=== PATIENT | female | born 1990 | race African-American/Black ===

== ENCOUNTER 2018-03-29 22:17 | Emergency (ER) | payer OTHER ==
[~2018-03-29] VITALS: Ht 167.6 cm; Wt 54.0 kg
[2018-03-29 22:17] VITALS: BP 127/80
--- NOTE | 2018-03-29 22:17 | NUR ---
PT BIB EMS ON 5150 HOLD FROM [facility]. PT TRANSFERED FROM [facility] TO BED 5 WITH VSS.
[2018-03-29 23:04] LABS: BASOPHILS % (AUTO) 0.3 % (0.0-2.0); EOSINOPHILS # (AUTO) 0.2 K/uL (0-0.4); EOSINOPHILS % (AUTO) 1.9 % (0.0-4.0); HEMATOCRIT 33.6 % (36-48); HEMOGLOBIN 10.7 g/dL (12.0-16.0); LYMPHOCYTES # (AUTO) 2.6 K/uL (2.5-16.5); LYMPHOCYTES % (AUTO) 21.1 % (20.5-51.1); MEAN CORPUSCULAR HEMOGLOBIN 25 pg (27-31); MEAN CORPUSCULAR HGB CONC 32 g/dL (33-37); MEAN CORPUSCULAR VOLUME 78.6 fL (80-94); MONOCYTES # (AUTO) 1.2 K/uL (0.8-1.0); MONOCYTES % (AUTO) 9.9 % (1.7-9.3); NEUTROPHILS # (AUTO) 8.3 K/uL (1.8-7.7); NEUTROPHILS % (AUTO) 66.8 % (42.2-75.2); PLATELET COUNT (AUTO) 521 K/uL (140-450); RED BLOOD CELL COUNT(AUTO) 4.27 MIL/uL (4.20-5.40); RED CELL DISTRIBUTION WIDTH 13.7 % (11.6-13.7); WHITE BLOOD COUNT (AUTO) 12.4 K/uL (4.8-10.8)
[2018-03-29 23:15] LABS: ANION GAP 13.7 (8-16); CARBON DIOXIDE 29.2 mmol/L (21-32); CHLORIDE 101 mmol/L (98-107); CREATININE 0.9 mg/dL (0.6-1.3); GFR ARICAN-AMERICAN 96 mL/min (>90); GLUCOSE 114 mg/dL (74-106); POTASSIUM 3.9 mmol/L (3.5-5.1); SODIUM SERUM 140 mmol/L (136-145); UREA NITROGEN, BLOOD 14 mg/dL (7-18)
[2018-03-29 23:21] LABS: ALBUMIN 3.4 g/dL (3.4-5.0); ASPARTATE AMINOTRANSFERASE 130 U/L (15-37); TOTAL BILIRUBIN 0.2 mg/dL (0.0-1.0)
[2018-03-29 23:23] LABS: ACETAMINOPHEN < 0.5 ug/ml (10-30); SALICYLATE < 2.8 mg/dL (2.8-20.0)
[2018-03-29 23:33] LABS: APPEARANCE,URINE SL CLOUDY (CLEAR); BILIRUBIN,URINE NEGATIVE (NEGATIVE); BLOOD, URINE NEGATIVE (NEGATIVE); COLOR,URINE YELLOW (YELLOW); LEUKOCYTE ESTERASE ,URINE NEGATIVE (NEGATIVE); NITRITE, URINE NEGATIVE (NEGATIVE); UGLUCOSE NEGATIVE (NEGATIVE)
[2018-03-29 23:42] LABS: BARBITURATE, URINE NEG. ng/ml (NEG <=200); BENZODIAZEPINE, URINE NEG. ng/mL (NEG <=200); CANNABINOID, URINE NEG. ng/mL (NEG <=50); COCAINE, URINE NEG. ng/mL (NEG <=300); OPIATE, URINE POS. ng/mL (NEG <=2000); PHENCYCLIDINE SCREEN,URINE NEG. ng/mL (NEG <=25)
--- NOTE | 2018-03-29 23:46 | NUR ---
REPORT GIVEN TO DR EMEKA LESLIEPSYCHSterling.
--- NOTE | 2018-03-30 00:32 | NUR ---
OUTPATIENT COUNSELING/METNAL HEALTH/PSYCHIATRIC PROGRMA INFORMATION PROVIDED UPON DISCHARGE.
[2018-03-30 00:49] VITALS: BP 129/70
--- NOTE | 2018-03-30 00:49 | NUR ---
Patient discharged with v/s stable. Written and verbal after care instructions given and explained. Patient verbalized understanding. Ambulatory with steady gait. All questions addressed prior to discharge. Advised to follow up with PMD.
== END 2018-03-30 00:49 | disposition home or self-care (01) ==
LOC: MED 22:17
DX: S41.102A Unspecified open wound of left upper arm, initial encounter (principal); X58.XXXA Exposure to other specified factors, initial encounter
CPT/HCPCS: 36415; 80053; 80305; 81003; 85025; 87040; 99285; G0480; G0482; 99284

== ENCOUNTER 2018-05-06 20:21 | Emergency (ER) | payer OTHER ==
[~2018-05-06] VITALS: Ht 167.6 cm; Wt 64.4 kg
[2018-05-06 20:21] VITALS: BP 125/82
--- NOTE | 2018-05-06 20:21 | NUR ---
PT BIBA. BLS TAKEN TO BED 3
--- NOTE | 2018-05-06 20:25 | NUR ---
PT BIBA PER [facility] PT WAS FOUND AT [place] ACTING ERRATIC AND ALTERED. PT IS IS VERBAL AND AWAKE, DOES NOT ANSWER QUESTIONS APPROPRIATELY. PT HAS OPEN WOUNDS TO RT AND LEFT UPPER ARMS. NO ACTIVE BLEEDING AT THIS TIME. UNABLE TO OBTAIN PMH OR ALLERGIES AT THIS TIME.
--- NOTE | 2018-05-06 20:53 | NUR ---
pt laying in bed restless, follows commands, does not answer questions appropriately.
[2018-05-06] MEDS ORDERED: HALOPERIDOL IM 5 MG/ML VIAL IM ONE (21:20)
--- NOTE | 2018-05-06 21:20 | NUR ---
Pt is restless and making sexually inapprop gestures, making sexually inapprop statements, and attempting to grab all staff members by the genitals.
[2018-05-06] MEDS ORDERED: diphenhydrAMINE 50 MG/ML VIAL IM ONE (21:25)
--- NOTE | 2018-05-06 22:22 | NUR ---
Pt sleeping, easily arousable. Calm and approp when awaken.
--- NOTE | 2018-05-07 01:00 | NUR ---
PT UNABLE TO URINATE ON BED RHODES, ER MADE AWARE, OK TO STRAIGHT CATH, PT TOLERATED PROCEDURE WELL.
[2018-05-07 02:30] LABS: BARBITURATE, URINE NEGATIVE ng/ml (NEG <=200); BENZODIAZEPINE, URINE NEGATIVE ng/mL (NEG <=200); COCAINE, URINE NEGATIVE ng/mL (NEG <=300)
[2018-05-07 02:31] LABS: CANNABINOID, URINE NEGATIVE ng/mL (NEG <=50); OPIATE, URINE POSITIVE ng/mL (NEG <=2000); PHENCYCLIDINE SCREEN,URINE NEGATIVE ng/mL (NEG <=25)
--- NOTE | 2018-05-07 03:00 | NUR ---
PT LAYING IN BED SLEEPING AROUSABLE TO VERBAL STIMULI, COMFORT NEEDS MET, WILL CONTINUE TO MONITOR.
--- NOTE | 2018-05-07 04:45 | NUR ---
PT LAYING IN BED SLEEPING , VSS.
--- NOTE | 2018-05-07 07:20 | NUR ---
REPORT GIVEN TO KEIRA, TRANSFER OF CARE AT THIS TIME.
--- NOTE | 2018-05-07 07:50 | NUR ---
Patient discharged with v/s stable. Written and verbal after care instructions given and explained. Patient verbalized understanding. Ambulatory with steady gait to the exit. All questions addressed prior to discharge. Advised to follow up with PMD. Removed wrist band
[2018-05-07 07:51] VITALS: BP 122/59
== END 2018-05-07 07:50 | disposition home or self-care (01) ==
LOC: MED 20:21
DX: F10.129 Alcohol abuse with intoxication, unspecified (principal)
CPT/HCPCS: 36415; 80305; 96372; 99284; G0482; J1200; J1630

== ENCOUNTER 2020-09-19 12:42 | Emergency (ER) | payer OTHER ==
[~2020-09-19] VITALS: Ht 180.3 cm; Wt 54.4 kg
[2020-09-19 12:42] VITALS: BP 118/86
--- NOTE | 2020-09-19 12:42 | NUR ---
ELO ALS TAKEN TO BED 6
--- NOTE | 2020-09-19 13:20 | NUR ---
IV ESTABLISHED, BLOOD DRAWN AND SENT TO LAB.
[2020-09-19 13:31] LABS: BASOPHILS % (AUTO) 0.2 % (0.0-2.0); EOSINOPHILS # (AUTO) 0.1 K/uL (0-0.4); EOSINOPHILS % (AUTO) 0.6 % (0.0-4.0); HEMATOCRIT 36.5 % (36-48); HEMOGLOBIN 11.6 g/dL (12.0-16.0); LYMPHOCYTES # (AUTO) 1.2 K/uL (2.5-16.5); MEAN CORPUSCULAR HEMOGLOBIN 25 pg (27-31); MEAN CORPUSCULAR HGB CONC 32 g/dL (33-37); MEAN CORPUSCULAR VOLUME 79.3 fL (80-94); MONOCYTES # (AUTO) 0.8 K/uL (0.8-1.0); MONOCYTES % (AUTO) 4.2 % (1.7-9.3); NEUTROPHILS # (AUTO) 17.3 K/uL (1.8-7.7); PLATELET COUNT (AUTO) 346 K/uL (140-450); RED CELL DISTRIBUTION WIDTH 15.2 % (11.6-13.7); WHITE BLOOD COUNT (AUTO) 19.5 K/uL (4.8-10.8)
[2020-09-19 13:45] VITALS: BP 123/90
[2020-09-19 13:53] LABS: ALBUMIN 3.1 g/dL (3.4-5.0); ANION GAP 9.8 (8-16); ASPARTATE AMINOTRANSFERASE 34 U/L (15-37); CARBON DIOXIDE 30.6 mmol/L (21-32); CHLORIDE 101 mmol/L (98-107); GFR ARICAN-AMERICAN 84 mL/min (>90); GLUCOSE 221 mg/dL (74-106); POTASSIUM 3.4 mmol/L (3.5-5.1); SODIUM SERUM 138 mmol/L (136-145); TOTAL BILIRUBIN 0.2 mg/dL (0.0-1.0); UREA NITROGEN, BLOOD 8 mg/dL (7-18)
[2020-09-19 13:55] LABS: SALICYLATE < 2.8 mg/dL (2.8-20.0)
[2020-09-19 13:56] LABS: ACETAMINOPHEN < 0.5 ug/ml (10-30)
[2020-09-19 14:50] LABS: CKMB RELATIVE INDEX 0.1 (0.0-2.5); CREATINE KINASE MB 2.2 ng/mL (0-3.6)
[2020-09-19 14:55] LABS: APPEARANCE,URINE CLEAR (CLEAR); BILIRUBIN,URINE NEGATIVE (NEGATIVE); BLOOD, URINE NEGATIVE (NEGATIVE); COLOR,URINE ORANGE (YELLOW); LEUKOCYTE ESTERASE ,URINE NEGATIVE (NEGATIVE); NITRITE, URINE NEGATIVE (NEGATIVE); UGLUCOSE 1+ (NEGATIVE)
[2020-09-19 15:03] LABS: BARBITURATE, URINE NEGATIVE ng/ml (NEG <=200); BENZODIAZEPINE, URINE NEGATIVE ng/mL (NEG <=200); CANNABINOID, URINE NEGATIVE ng/mL (NEG <=50); COCAINE, URINE NEGATIVE ng/mL (NEG <=300); OPIATE, URINE NEGATIVE ng/mL (NEG <=2000); PHENCYCLIDINE SCREEN,URINE NEGATIVE ng/mL (NEG <=25)
--- NOTE | 2020-09-19 16:55 | NUR ---
Patient discharged with v/s stable. Written and verbal after care instructions given and explained. Patient verbalized understanding. Ambulatory with steady gait. All questions addressed prior to discharge. Advised to follow up with PMD. PT AAOX4, AMBULATED WITH STEADY GAIT, IN NAD, VSS. PT REFUSED TO TAKE DISCHARGE INSTRUCTIONS WITH HER AND LEFT WITHOUT THEM.
== END 2020-09-19 16:55 | disposition home or self-care (01) ==
LOC: EDBD → MED 12:42 → MERGE 12:42 → MED 16:55
DX: G93.40 Encephalopathy, unspecified (principal)
CPT/HCPCS: 36415; 80053; 80305; 81003; 81025; 82550; 82553; 84484; 85025; 93005; 99285; G0480; G0482

== ENCOUNTER 2020-09-19 17:57 | Inpatient (IN) | payer OTHER, SELFPAY ==
[~2020-09-19] VITALS: Ht 165.1 cm; Wt 54.4 kg
[2020-09-19 17:57] VITALS: BP 107/70
[~2020-09-19 17:57] MED LIST: ARIP5TAB8 PO
--- NOTE | 2020-09-19 17:57 | NUR ---
BIBA TAKEN TO BED 6
[2020-09-19] MEDS ORDERED: LORazepam 2 MG/ML VIAL IM ONE (18:05)
[2020-09-19] MEDS ORDERED: ONDANSETRON 4 MG/2 ML VIAL IM ONE (18:05)
[2020-09-19 18:53] LABS: BASOPHILS # (AUTO) 0.1 K/uL (0.00-0.22); BASOPHILS % (AUTO) 0.5 % (0.0-2.0); EOSINOPHILS % (AUTO) 0.1 % (0.0-4.0); HEMATOCRIT 35.3 % (36-48); HEMOGLOBIN 10.9 g/dL (12.0-16.0); LYMPHOCYTES % (AUTO) 5.3 % (20.5-51.1); MEAN CORPUSCULAR HEMOGLOBIN 25 pg (27-31); MEAN CORPUSCULAR HGB CONC 31 g/dL (33-37); MONOCYTES # (AUTO) 0.9 K/uL (0.8-1.0); MONOCYTES % (AUTO) 4.7 % (1.7-9.3); NEUTROPHILS # (AUTO) 16.2 K/uL (1.8-7.7); NEUTROPHILS % (AUTO) 89.4 % (42.2-75.2); PLATELET COUNT (AUTO) 341 K/uL (140-450); RED BLOOD CELL COUNT(AUTO) 4.42 MIL/uL (4.20-5.40); RED CELL DISTRIBUTION WIDTH 15.5 % (11.6-13.7); WHITE BLOOD COUNT (AUTO) 18.2 K/uL (4.8-10.8)
--- NOTE | 2020-09-19 19:13 | NUR ---
RECEIVED TRANSFER OF CARE REPORT FROM MARTA BARNETT FOR CONTINUATION OF CARE.
[2020-09-19 19:16] LABS: ALBUMIN 3.2 g/dL (3.4-5.0); CARBON DIOXIDE 29.7 mmol/L (21-32); CREATININE 0.9 mg/dL (0.6-1.3); POTASSIUM 3.7 mmol/L (3.5-5.1); TOTAL BILIRUBIN 0.2 mg/dL (0.0-1.0)
--- NOTE | 2020-09-19 19:16 | NUR ---
PT FOUND ASLEEP IN SEMI-WALSH'S POSITION IN BED. PT HAS VISIBLE EQUAL RISE AND FALL UPON RESPIRATION. NO SIGNS OF DISTRESS. BED LOCKED IN LOWEST POSITION WITH 2 SIDE RAILS UP FOR SAFETY. WILL CONTINUE TO MONITOR.
[2020-09-19] MEDS ORDERED: AZITHROMYCIN 500 MG in DEXTROSE 5% 250 ML IV ONE (19:55)
[2020-09-19] MEDS ORDERED: AZITHROMYCIN 500 MG INJ VIAL IV ONE (20:00)
--- NOTE | 2020-09-19 20:30 | NUR ---
RADIOLOGIST TECH AT BEDSIDE.
[2020-09-19 20:44] LABS: PROTHROMBIN TIME 10.2 secs (10.8-13.4)
--- NOTE | 2020-09-19 21:16 | NUR ---
PT FOUND ASLEEP IN SEMI-WALSH'S POSITION IN BED. PT HAS VISIBLE EQUAL RISE AND FALL UPON RESPIRATION. NO DISTRESS NOTED. BED LOCKED IN LOWEST POSITION WITH 2 SIDE RAILS UP FOR SAFETY.
[2020-09-19] MEDS ORDERED: KCL 20 MEQ/WATER INJ PREMIX 200 ML IV PRN (21:25)
[2020-09-19] MEDS ORDERED: MAG SULF 2000 MG/WATER PREMIX 50 ML IV PRN (21:25)
[2020-09-19] MEDS ORDERED: POTASSIUM CHLORIDE 10 MEQ TABER PO PRN (21:25)
[2020-09-19] MEDS ORDERED: IBUPROFEN 400 MG TAB PO PRN (21:25)
[2020-09-19] MEDS ORDERED: MAGNESIUM OXIDE 400 MG TAB PO PRN (21:25)
[2020-09-19] MEDS ORDERED: LORazepam 1 MG TAB PO PRN (21:25)
[2020-09-19] MEDS ORDERED: ACETAMINOPHEN 325 MG TAB PO PRN (21:25)
[2020-09-19] MEDS ORDERED: ONDANSETRON 4 MG/2 ML VIAL IVP PRN (21:25)
[2020-09-19] MEDS ORDERED: ZOLPIDEM 5 MG TAB PO PRN (21:25)
--- NOTE | 2020-09-19 22:23 | NUR ---
Patient will be admitted to care of DR BOSWELL. Admited to MED/SURG. Will go to room 109B. Belongings list completed. Report to SAAD BARNETT.
--- NOTE | 2020-09-19 22:45 | NUR ---
PT TRANSFERRED TO ROOM 109B VIA [facility]NEY. RECEIVING NURSE SAAD BARNETT AT BEDSIDE.
[2020-09-19 23:00] VITALS: BP 106/86
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
--- NOTE | 2020-09-20 00:34 | NUR ---
Patient's Plan of Care was discussed and reviewed with WHEEL ROLLER: JOHNNA LIN
--- NOTE | 2020-09-20 01:00 | NUR ---
LYING ON HER LEFT SIDE, SLEEPING COMFORTABLY.
--- NOTE | 2020-09-20 03:00 | NUR ---
STILL VERY DROWSY, DOES NOT RESPOND TO QUESTIONS, CONTINUED SLEEPING.
[2020-09-20 04:00] VITALS: BP 101/57
--- NOTE | 2020-09-20 05:00 | NUR ---
IV ACCIDENTALLY PULLED OUT. PATIENT KEEP ON MOVING IN BED. REFUSED NEW IV LINE INSERTION.
--- NOTE | 2020-09-20 05:30 | NUR ---
REQUESTED FOR FOOD BUT WHEN GIVEN DID NOT EAT, JUST CONTINUED SLEEPING.
--- NOTE | 2020-09-20 07:15 | NUR ---
REC'D REPORT FROM LEAD PORTFOLIO MANAGER NURSE, CURRENTLY PT HAS NO IV ACCESS, PT PULLED OUT DURING SHIFT. RA. PT SLEEPING, CALL LIGHT WITHIN REACH. PT DOES NOT NEED SITTER PER LEAD PORTFOLIO MANAGER NURSE.
--- NOTE | 2020-09-20 07:20 | NUR ---
STILL SLEEPING SOUNDLY IN BED. ENDORSED TO AM SHIFT NURSE FOR CONTINUITY OF CARE.
[2020-09-20 08:00] VITALS: BP 128/55
[2020-09-20] MEDS: ENOXAPARIN 40 MG/0.4 ML SYR SUBQ SCH (09:00)
--- NOTE | 2020-09-20 09:05 | NUR ---
PT REFUSED TO HAVE MEDICATION ADMINISTERED
--- NOTE | 2020-09-20 09:17 | NUR ---
PATIENT HAS BEEN SCREENED AND CATEGORIZED LOW NUTRITION RISK. PATIENT WILL BE SEEN WITHIN 7 DAYS OF ADMISSION. 09/26/[address]
--- NOTE | 2020-09-20 09:33 | NUR ---
PT STABLE, FINISHED WITH BREAKFAST, REFUSES FOR TRASH TO BE CLEARED FROM SIDE TABLE. NO SIGN OF DISTRESS AT THIS TIME. RA
--- NOTE | 2020-09-20 10:45 | NUR ---
NOTIFIED DR. LOPEZ REGARDING THE PSYCH CONSULT, STATED HE WILL SEE PT TODAY. CHERRY ASSIGNED MADE AWARE.
--- NOTE | 2020-09-20 11:01 | NUR ---
PT DOES NOT ALLOW FOR ME TO TOUCH HER, CANNOT PLACE IV CATHETER. STABLE
--- NOTE | 2020-09-20 11:33 | NUR ---
PT SCREAMING, YELLING FOR FOOD AND SNACKS, PUDDING, JELLO AND JUICE WERE PROVIDED, PT HASTY WHEN TAKING SNACKS. CALMED DOWN AFTER GETTING FOOD.
--- NOTE | 2020-09-20 11:42 | NUR ---
SOCIAL WORK NOTE: SW WAS UNABLE TO MEET PATIENT AT BEDSIDE TO COMPLETE ASSESSMENT. SW ATTEMPTED TO COMPLETE ASSESSMENT BUT PATIENT REFUSED. PATIENT APPEARED TO BE SLEEPING AND DID NOT RESPOND TO SW. Addendum: 09/21/20 at 1233 by Osito Espitia PATIENT REFUSED TO COMPLETE ASSESSMENT AND DID NOT RESPOND TO SW.
--- NOTE | 2020-09-20 14:05 | NUR ---
DC [age]ANN[age] YRS OLD FEMALE HOMELESS PATIENT WAS ADMITTED FROM ER WITH A DX OF METH USE , COVID POSITIVE, 5150 HOLD . PT HAS NO MEDICAL HX. CXR SHOWED NO ACUTE CARDIOPULMONARY DISEASE. RAPID COVID TEST POSITIVE PCR IS PENDING. CT ABD/PELVIS SOWED NO BOWEL OBSTRUCTION. WBC 18.2 STARTED ON IV ABX AZITHROMYCIN AND ROCEPHIN IV ABX. CONSULTED DR LOPEZ FOR 5150 HOLD. DC PLAN PER PSYCHIATRIST RECOMMENDATION CM TO FOLLOW
--- NOTE | 2020-09-20 15:30 | NUR ---
PT SLEEPING, HAS COVERS OVER HEAD, NO SIGN OF DISTRESS
--- NOTE | 2020-09-20 19:30 | NUR ---
ENDORSED TO TANK TRUCK LOADER NURSE FOR CONTINUITY OF CARE. RA. CALL LIGHT WITHIN REACH. STABLE NO SIGN OF DISTRESS
--- NOTE | 2020-09-20 19:31 | NUR ---
RECD. RESTING IN BED ASLEEP. WHEN WAKEN UP JUST MOVE AND CHANGED POSITION. RESPIRATION EVEN AND UNLABORED. NO IV LINE, REFUSING FOR A NEW ONE TO BE INSERTED. DISHEVELED AND UNKEMPT. WILL CONTINUE TO MONITOR BEHAVIOR, CONTINUED SLEEPING. WAITING FOR DR LOPEZ FOR PSYCHE CONSULTATION. NO APPEARANCE OF PAIN NOTED, 0/10.
[2020-09-20 20:00] VITALS: BP 107/59
--- NOTE | 2020-09-20 20:00 | NUR ---
ALLOWED HEAD ESTHETICIAN TO TAKE HER VITALS SIGNS. SANDWICH AND JUICE GIVEN REQUESTED.
--- NOTE | 2020-09-20 21:30 | NUR ---
Patient's Plan of Care was discussed and reviewed with TREE TRIMMER: JOHNNA LIN
--- NOTE | 2020-09-20 21:45 | NUR ---
IN BED WITH HEAD COVERED WITH BLANKET, WHEN A QUESTION WAS ASKED, JUST MOVED HER BODY, DID NOT ANSWER.
--- NOTE | 2020-09-21 01:00 | NUR ---
BEDDINGS CHANGED, ASSISTED BY MANAGER DOCUMENT TO PUT ON NEW GOWN, RELUCTANT TO OBEY BUT MOTIVATED BY GRANTING HER REQUEST FOR A SANDWICH AND JUICE.
--- NOTE | 2020-09-21 02:30 | NUR ---
SLEEPING COMFORTABLY IN BED.
[2020-09-21 04:00] VITALS: BP 123/67
--- NOTE | 2020-09-21 04:30 | NUR ---
VOIDED IN THE BED, REFUSED BEDDINGS AND GOWN TO BE CHANGED.
[2020-09-21 07:25] LABS: ALBUMIN 2.8 g/dL (3.4-5.0); ANION GAP 10.7 (8-16); CARBON DIOXIDE 28.6 mmol/L (21-32); CREATININE 0.8 mg/dL (0.6-1.3); POTASSIUM 4.3 mmol/L (3.5-5.1); TOTAL BILIRUBIN 0.1 mg/dL (0.0-1.0)
[2020-09-21 07:36] LABS: BASOPHILS # (AUTO) 0.1 K/uL (0.00-0.22); BASOPHILS % (AUTO) 0.7 % (0.0-2.0); EOSINOPHILS # (AUTO) 0.2 K/uL (0-0.4); EOSINOPHILS % (AUTO) 1.4 % (0.0-4.0); HEMATOCRIT 36.2 % (36-48); HEMOGLOBIN 11.5 g/dL (12.0-16.0); LYMPHOCYTES % (AUTO) 14.7 % (20.5-51.1); MEAN CORPUSCULAR HEMOGLOBIN 25 pg (27-31); MEAN CORPUSCULAR HGB CONC 32 g/dL (33-37); MEAN CORPUSCULAR VOLUME 79.2 fL (80-94); NEUTROPHILS # (AUTO) 10.6 K/uL (1.8-7.7); NEUTROPHILS % (AUTO) 76.2 % (42.2-75.2); PLATELET COUNT (AUTO) 380 K/uL (140-450); RED BLOOD CELL COUNT(AUTO) 4.57 MIL/uL (4.20-5.40); WHITE BLOOD COUNT (AUTO) 13.9 K/uL (4.8-10.8)
--- NOTE | 2020-09-21 07:47 | NUR ---
ENDORSED TO AM SHIFT NURSE FOR CONTINUITY OF CARE.
--- NOTE | 2020-09-21 07:48 | NUR ---
RECEIVED BEDSIDE ENDORSEMENT FROM NIGHTSOKFT NURSE FOR CONTINUITY OF CARE.
[2020-09-21] MEDS: ENOXAPARIN 40 MG/0.4 ML SYR SUBQ SCH ×2 (09:00→09:46)
--- NOTE | 2020-09-21 09:51 | NUR ---
PATIENT REFUSED PRESCRIBED MED PER MD ORDER. PATIENT SLEEPING IN BED, BREAKFAST TRAY AT BEDSIDE. PATIENT ALSO REFUSED V/S. PATIENT STATED SHE WANTED TO GO HOME. SAFETY MEASURES IN PLACE. WILL CONTINUE TO MONITOR.
--- NOTE | 2020-09-21 10:01 | NUR ---
RECEIVED LAB MRSA ISOLATED STRAPHYLOCCOCUS AUREUS. MRSA SET ENTERED PER PROTOCOL. PATIENT ON DROPLET PRECAUTION FOR COVID + RESULTS.
[2020-09-21] MEDS ORDERED: CHLORHEXADINE GLUC 2% CLOTH TP SCH (11:00)
[2020-09-21] MEDS ORDERED: MUPIROCIN CA NASAL 2% 1GM TUBE NS SCH (11:00)
--- NOTE | 2020-09-21 11:47 | NUR ---
PATIENT IS SLEEPING IN BED, CONTINUES TO REFUSE MEDICATIONS PRESCRIBED BY MD ORDER. REINFORCEMENT NEEDED FOR COMPLIANCE. SAFETY MEASURES IN PLACE. WILL CONTINUE TO MONITOR.
--- NOTE | 2020-09-21 13:35 | NUR ---
PATIENT UP IN BED, YELLING AND CRYING WANTING TO GO HOME. ASSURED PATIENT MD WANTS TO MAKE SURE SHE IS STABLE ENOUGH TO BE DISCHARGED. REINFORCEMENT NEEDED FOR MEDICAL TREATMENT EDUCATION. SAFETY MEASURES IN PLACE. WILL CONTINUE TO MONITOR.
[2020-09-21] MEDS ORDERED: HALOPERIDOL IM 5 MG/ML VIAL IM PRN (15:30)
[2020-09-21] MEDS ORDERED: DIPH50CA69 PO (16:25)
--- NOTE | 2020-09-21 17:50 | NUR ---
PATIENT IS DISCHARGED, REFUSED ALL CARES TODAY INCLUDING V/S AND MEDICATIONS. PATIENT RECEIVED DISCHARGE PAPERWORK AND INSTRUCTIONS. PATIENT HAS HOMELESS RESOURCE PACKET, BUS PASS AND SACK LUNCH PROVIDED. PATIENT CHANGED INTO CLOTHES AND GATHERED ALL PERSONAL BELONGINGS FROM ROOM. PATIENT ESCORTED TO OUTSIDE OF HOSPITAL. PATIENT IS STABLE.
== END 2020-09-21 17:30 | disposition home or self-care (01) | DRG 52 ==
LOC: MED 17:57 → MTU 21:25 → OBSVTOIN 09-20 14:55 → MERGE 09-20 14:55
PROVIDERS: ADMIT Hospitalist; ATTEND Hospitalist
DX: G92 Toxic encephalopathy (principal); D72.829 Elevated white blood cell count, unspecified; F20.9 Schizophrenia, unspecified; Z20.822 Contact with and (suspected) exposure to COVID-19; Z59.0 Homelessness
CPT/HCPCS: 96365; 99285; G0378; 36415; 71045; 80053; 84484; 85025; 85379; 85610; 85730; 87040; 87081; J0456; J1650; J2060; J7060; U0003